=== PATIENT | female | born 1990 | race Caucasian/White ===

== ENCOUNTER 2020-05-12 21:31 | Emergency (ER) | payer SELFPAY ==
[~2020-05-12] VITALS: Ht 154.9 cm; Wt 60.0 kg
[2020-05-12 21:32] VITALS: TEMP 98.5
[2020-05-12 21:49] LABS: BASO # 0.1 (0.0-0.2); EOS # 0.4 (0.0-0.7); EOS % 5.6 % (0-4.0); GRAN # 4.2 (1.4-6.5); GRAN % 61.4 % (42.2-75.2); HEMATOCRIT 43.4 % (37.0-47.0); HEMOGLOBIN 14.4 g/dl (12.5-16.0); LYMPH # 1.7 (1.2-3.4); LYMPH % 25.5 % (20.0-51.0); MEAN CELL VOLUME 93 fl (80.0-100.0); MEAN CORPUSCULAR HEMOGLOBIN 31 pg (27.0-31.0); MEAN CORPUSCULAR HGB CONC 33 g/dl (33.0-37.0); MEAN PLATELET VOLUME 8.8 fl (7.4-10.4); MONO # 0.4 (0.1-0.6); MONO % 6.2 % (1.7-9.3); PLATELET COUNT 264 K/mm3 (130-400); RED BLOOD COUNT 4.67 M/mm3 (4.10-5.30); REDCELL DISTRIBUTION WIDTH-CV 11.7 % (11.5-14.5)
[2020-05-12 21:54] LABS: PROTHROMBIN TIME 11.3 SECONDS (9.7-12.8)
[2020-05-12 22:00] LABS: ALANINE AMINOTRANSFERASE 16 U/L (4-34); ALBUMIN 4.4 gm/dL (3.5-5.0); ALKALINE PHOSPHATASE 49 U/L (50-136); ANION GAP 13 mmol/L (7-16); AST,SGOT 26 U/L (15-37); BILIRUBIN,TOTAL 0.5 mg/dL (0.0-1.0); BLOOD UREA NITROGEN 10 mg/dL (7-17); CALCIUM 9.1 mg/dL (8.4-10.2); CARBON DIOXIDE 22 mmol/L (22-30); CHLORIDE 103 mmol/L (98-107); CREATININE, serum 0.79 (0.52-1.25); GLUCOSE 123 mg/dL (74-106); POTASSIUM 4.2 mmol/L (3.4-5.0); SODIUM 138 mmol/L (137-145); TOTAL PROTEIN 7.7 gm/dL (6.4-8.2)
[2020-05-12 22:04] LABS: ALCOHOL(ethanol),MEDICAL < 10 mg/dL
[2020-05-12 22:16] LABS: PROLACTIN 327.2 ng/mL (3.0-18.6)
[2020-05-13 00:10] LABS: COLLECTION METHOD CLEAN CATCH
[2020-05-13 00:21] LABS: TRICYCLIC ANTIDEPRESS URINE NEGATIVE
[2020-05-13 00:26] LABS: MUCOUS Present /lpf; PH 7 (5-8); SQUAMOUS EPITHELIAL None Seen /hpf; URINE APPEARANCE Clear; URINE BACTERIA None Seen /hpf; URINE BILIRUBIN Negative (NEGATIVE); URINE BLOOD Negative (NEGATIVE); URINE COLOR Yellow; URINE GLUCOSE Negative (NEGATIVE); URINE KETONE Negative (NEGATIVE); URINE LEUKOCYTE ESTERASE Negative (NEGATIVE); URINE NITRATE Negative (NEGATIVE); URINE PROTEIN(semi-quant) Negative (NEGATIVE); URINE RBC 0-2 /hpf; URINE UROBILINOGEN Negative (NEGATIVE); URINE WBC 0-2 /hpf
[2020-05-13 00:44] VITALS: BP 133/88; PULSE 78
== END 2020-05-13 01:05 | disposition home or self-care (01) ==
LOC: COL.ER 21:31
PROVIDERS: Emergency Medicine
DX: G40.909 Epilepsy, unspecified, not intractable, without status epilepticus (principal); Z32.02 Encounter for pregnancy test, result negative
CPT/HCPCS: J2060; J7030; Q9967

== ENCOUNTER → 2021-06-10 | Outpatient (CLI) | payer SELFPAY | LOC: COL.RAD 09:57 | DX: N94.10 Unspecified dyspareunia (principal) ==

== ENCOUNTER 2022-04-08 07:34 | Emergency (ER) | payer SELFPAY ==
[~2022-04-08] VITALS: Ht 160 cm; Wt 63.6 kg
[2022-04-08 07:45] VITALS: TEMP 98.7
[2022-04-08 09:32] LABS: BASO # 0.1 K/mm3 (0.0-0.2); BASO % 0.8 % (0.0-2.0); EOS % 0.3 % (0.0-4.0); GRAN # 10.2 K/mm3 (1.4-6.5); GRAN % 79.4 % (42.2-75.2); HEMATOCRIT 39.1 % (37.0-47.0); HEMOGLOBIN 13.2 g/dl (12.5-16.0); LYMPH # 1.7 K/mm3 (1.2-3.4); LYMPH % 13.1 % (20.0-51.0); MEAN CELL VOLUME 90 fl (80.0-100.0); MEAN CORPUSCULAR HEMOGLOBIN 30 pg (27-31); MEAN CORPUSCULAR HGB CONC 34 g/dl (33.0-37.0); MEAN PLATELET VOLUME 9.2 fl (7.4-10.4); MONO # 0.8 K/mm3 (0.1-0.6); MONO % 6.1 % (1.7-9.3); PLATELET COUNT 390 K/mm3 (130-400); RED BLOOD COUNT 4.36 M/mm3 (4.10-5.30); REDCELL DISTRIBUTION WIDTH-CV 12.1 % (11.5-14.5)
[2022-04-08 09:49] LABS: ALBUMIN 4.2 gm/dL (3.5-5.0); BILIRUBIN,TOTAL 0.6 mg/dL (0.2-1.2); CALCIUM 8.9 mg/dL (8.4-10.2); CREATININE, serum 0.7 mg/dL (0.57-1.11); POTASSIUM 4.3 mmol/L (3.5-4.5); TOTAL PROTEIN 7.5 gm/dL (6.2-8.1)
[2022-04-08 10:10] LABS: C-REACTIVE PROTEIN 0.28 mg/dL (0.00-0.50)
[2022-04-08 10:41] LABS: COLLECTION METHOD CLEAN CATCH
[2022-04-08 10:50] LABS: PH 6 (5-8); URINE APPEARANCE Clear (CLEAR/HAZY); URINE BLOOD 2+ (NEGATIVE); URINE COLOR Yellow (YELLOW); URINE GLUCOSE Negative (NEGATIVE); URINE KETONE Negative (NEGATIVE); URINE NITRATE Negative (NEGATIVE); URINE PROTEIN(semi-quant) Negative (NEGATIVE); URINE UROBILINOGEN Negative (NEGATIVE)
[2022-04-08 10:52] LABS: SQUAMOUS EPITHELIAL 0-2 /hpf (0-10); URINE BACTERIA None Seen /hpf (NONE SEEN); URINE RBC 0-2 /hpf (0-2)
[2022-04-08] MEDS ORDERED: NORCO 325 MG-51 TAB PO (12:14)
[2022-04-08 12:16] VITALS: BP 139/93; PULSE 79
== END 2022-04-08 12:51 | disposition home or self-care (01) ==
LOC: COL.ER 07:34
PROVIDERS: Family Medicine
DX: N83.291 Other ovarian cyst, right side (principal); Z32.02 Encounter for pregnancy test, result negative
CPT/HCPCS: J2270; J2405; J7120; Q9967

== ENCOUNTER 2023-04-02 14:55 | Outpatient (RCR) | payer SELFPAY ==
[~2023-04-02 14:55] MED LIST: NORCO 325 MG-51 TAB PO
== END 2023-04-29 | disposition home or self-care (01) ==
LOC: MKS.ESL.PT
DX: M25.359 Other instability, unspecified hip (principal)